=== PATIENT | female | born 1965 | race Caucasian/White ===

== ENCOUNTER → 2023-04-25 15:40 | Outpatient (REF) | payer BC, SELFPAY | LOC: WDC 15:40 | PROVIDERS: ATTENDING PHYSICIAN Obstetrics & Gynecology; FAMILY PHYSICIAN Internal Medicine | DX: Z12.31 Encounter for screening mammogram for malignant neoplasm of breast (principal) | CPT/HCPCS: 77063; 77067 ==

== ENCOUNTER → 2023-07-01 12:52 | Outpatient (REF) | payer BC, SELFPAY | LOC: WDC 12:52 | PROVIDERS: ATTENDING PHYSICIAN Obstetrics & Gynecology; FAMILY PHYSICIAN Internal Medicine | DX: R92.2 Inconclusive mammogram (principal) | CPT/HCPCS: 76641 ==

== ENCOUNTER 2023-08-11 21:35 | Emergency (ER) | payer BC, SELFPAY ==
[2023-08-11 21:35] VITALS: BMI 26.4
[2023-08-11 21:37] VITALS: BP 125/94
[2023-08-11 21:50] VITALS: BP 124/89
[2023-08-11 22:00] VITALS: BP 126/87
[2023-08-11] MEDS: NSS 1000 IV (23:04)
[2023-08-11] MEDS: DILAUDID 0.5 MG IV (23:05)
[2023-08-11] MEDS: OMNIPAQUE 50 ML PO (23:05)
[2023-08-11] MEDS: ZOFRAN 4 MG IV (23:05)
[2023-08-11 23:14] LABS: % Basophils 0.3 % (0-2); % Eosinophils 0.7 % (0-6); % Immature Granulocytes 0.3 % (0-0.5); % Lymphocytes 2.8 % (20.5-51.1); % Monocytes 4.1 % (1.7-9.3); % Neutrophils 91.8 % (42.2-75.2); Absolute Eosinophils 0.1 10^3/uL (0-0.7); Absolute Lymphocytes 0.2 10^3/uL (1.2-3.4); Absolute Monocytes 0.3 10^3/uL (0.1-0.6); Absolute Neutrophils 6.7 10^3/uL (1.4-6.5); Hematocrit 42.7 % (37.0-47.0); Hemoglobin 15.1 g/dL (12.0-16.0); Mean Corp Hgb Conc. 35.4 g/dL (33.0-37.0); Mean Corpuscular Hgb 28.8 pg (27.0-31.0); Mean Corpuscular Volume 81.5 fL (81.0-99.0); Mean Platelet Volume 11.8 fL (7.4-10.4); Nucleated Red Blood Cells % 0 %; Platelet Count 172 10^3/uL (130-400); Red Blood Cell Count 5.24 10^6/uL (4.20-5.40); Red Cell Dist. Width 14.4 % (11.5-14.5); White Blood Cell Count 7.2 10^3/uL (4.8-10.8)
--- NOTE | 2023-08-11 23:14 | ED.GENMED ---
History of Present Illness
General
Chief Complaint: Abdominal Pain
Source: patient, records and spouse
Exam Limitations: none
Time Seen by Provider: 08/11/23 22:34
Nursing documentation reviewed up to this point in time: agreed with
Travel History
Have you had any contact with someone who has COVID-19?: No
Do you have any symptoms of coronavirus? Fever > 100 degrees, chills, cough, shortness of breath, sore throat, loss of taste or smell, muscle aches, or headache?: No
History of Present Illness
History of Present Illness:
Patient is a 58-year-old female who presents to the emergency department complaining of feeling lightheaded and dizzy as well as nauseous with a small amount of vomiting and sudden onset of right lower quadrant pain about 3 PM today. Patient has
been feeling increased gassiness over the past 2 days. Patient denies any diarrhea or constipation. Patient denies fever or chills. Patient also developed cramps in her calves. Patient denies any hematuria, dysuria, urgency or frequency.
Past History
Past History
ED Past Medical History: None
ED Past Surgical History: Orthopedic
Social History
Tobacco: Non-smoker
Alcohol: None
Drug: None
Living: with family
Review of Systems
Review of Systems
All Other Systems: ROS reviewed and negative except as documented in HPI and ROS
Constitutional: Reports no symptoms
EENT: Reports no symptoms
Respiratory: Reports no symptoms
Cardiac: Reports no symptoms
ABD/GI: Reports abdominal pain, vomiting and anorexia; Denies diarrhea or constipated
: Reports no symptoms
Musculoskeletal: Reports no symptoms
Skin: Reports no symptoms
Neurological: Reports no symptoms
Hematologic/Lymphatic: Reports no symptoms
Phy Exam
Physical Exam
Physical Exam:
Physical Exam
General: moderate distress, alert and appropriate, well nourished, dry mucous membranes
HENT: Normocephalic, supple with no lymphadenopathy, no thyromegaly
Eyes: Clear sclera, conjuctiva without injection
Heart: Regular rhythm and rate. No S3, S4. No murmur.
Lungs: No respiratory distress, no stridor, lung sounds clear and equal bilaterally
Abdomen: Soft, moderate right lower quadrant tenderness with guarding but no rebound, mild lower abdominal tenderness without rebound or guarding, no organomegaly, no CVA tenderness, BS good
Neuro: Alert and oriented x 3, CN II - XII intact, no motor focality, no cerebellar dysfunction
Skin: no rash
Psychiatric: well kept. interactive and cooperative
Extremities: No edema, cyanosis, tenderness, Good and equal peripheral pulses.
Course
Orders/Labs/Results
Orders:
Orders
08/11/23 21:42
EKG [Electrocardiogram (*1)] Urgent
Reason for Study: Vertigo / Dizzy
EKG- Treatment ONCE
08/11/23 22:49
Urinalysis Reflex To Culture Urgent
Date Specimen was Collected: 08/12/23
Time Specimen was Collected: 00:29
0.9% Sodium Chloride 1000 ml [Nss] 1,000 ml IV BOLUS
HYDROmorphone [Dilaudid] 0.5 mg IV NOW STA
Iohexol [Omnipaque] See Protocol PO NOW STA
Ondansetron Injectable [Zofran] 4 mg IV NOW STA
08/11/23 23:02
Complete Blood Count/With Diff Urgent
Comprehensive Metabolic Panel Urgent
Lipase Urgent
08/12/23 00:33
Urine Microscopic Reflex Cult Urgent
08/12/23 01:00
CT Abd/pel W Iv And Oral Contr Urgent
Reason For Exam: RLQ tedner
08/12/23 02:22
0.9% Sodium Chloride 500 ml [Nss] 500 ml IV BOLUS
Diphenhydramine [Benadryl] 12.5 mg IV NOW STA
Ketorolac [Toradol] 15 mg IV NOW STA
Pantoprazole [Protonix IV] 80 mg IV NOW STA
Prochlorperazine [Compazine] 10 mg IV NOW STA
Sucralfate [Carafate] 1 gram PO NOW STA
Abnormal Lab Results
08/11/23 08/12/23
23:02 00:33
MPV 11.8 H fL
(7.4-10.4)
Absolute Neuts (auto) 6.7 H 10^3/uL
(1.4-6.5)
Absolute Lymphs (auto) 0.2 L 10^3/uL
(1.2-3.4)
Neutrophils % 91.8 H %
(42.2-75.2)
Lymphocytes % 2.8 L %
(20.5-51.1)
Sodium 134 L mmol/L
(135-145)
BUN 18 H mg/dl
(7-17)
Glucose 108 H mg/dl
(70-99)
AST 42 H U/L
(14-36)
ALT 49 H U/L
(0-35)
Urine Ketones 1+ A
(Negative)
Ur Occult Blood Reflex Trace A
(Negative)
Urine RBC 3-6 A /HPF
(0-2)
Urine Bacteria (Reflex) Few A
(Negative)
Urine Yeast Few A
(Negative)
08/11/23 23:02
08/11/23 23:02
Vital Signs
Initial and Last Documented VS:
Initial Vital Signs
Temp Pulse BP Pulse Ox
98.1 F 120 125/94 97
08/11/23 21:37 08/11/23 21:37 08/11/23 21:37 08/11/23 21:37
Last Documented Vital Signs
Temp Pulse Resp BP Pulse Ox
98.1 F 103 18 101/78 95
08/11/23 21:37 08/12/23 02:45 08/12/23 02:45 08/12/23 02:00 08/12/23 02:45
*Pulse Oximetry
Patient hypoxic: no
*EKG
Interpreted by ED Provider?: NA
*Manager Of Engineering Interpretation
Rate: Manager Of Engineering- N/A
*Critical Care Note
Total Time (30-74mins, 75-104mins- exclusive of procedures): Not Applicable
Update Note
Update Note:
Patient had been feeling better but now is getting recurrence of the pain as well as nausea. Patient's abdominal tenderness is more on the right side now with mild in the right upper quadrant and more intense tenderness in the right lower quadrant
without guarding or rebound.
0340 patient sleeping the last 3 times I want to go into the room to check on her. Unsure the etiology of the patient's pain but seems to be much improved at this time. Patiently discharged to follow-up with her family doctor.
ED Attending Note
-
Portions of this chart may have been created with voice recognition software.� Occasional wrong word or��sound alike� substitutions may have occurred due to the inherent limitations of voice recognition software.
Discharge Plan
Departure
Patient Disposition: Home (Routine Discharge)
Date of Disposition: 08/12/23
Time of Disposition: 03:39
Patient with high blood pressure during this ER visit?: No
Condition: Fair
Covid-19: Not Applicable
Discharge Problem:
Nonspecific abdominal pain
Instructions: [place] Diet, Abdominal Pain
Prescriptions:
New
ondansetron 8 mg tablet,disintegrating
8 mg PO TID PRN (Reason: nausea and vomiting) Qty: 20 0RF
ketorolac 10 mg tablet
10 mg PO QID PRN (Reason: pain) Qty: 20 0RF
No Action
albuterol sulfate [ProAir HFA] 90 mcg/actuation Hfa Aerosol Inhaler
2 puff INHALATION BID
ezetimibe [Zetia] 10 mg Tablet
5 mg PO DAILY
Repatha SureClick 140 mg/mL Pen Injector
140 mg SC Q2W
Referrals:
Connie Mendoza MD [Family Provider] - Follow up in 5-7 days
Interventions
Interventions:
*Risk Screen - Suicide Last Done: 08/11/23 21:38
ED- Fall Risk Assessment Last Done: 08/11/23 22:10
YA-Tsrqxl-Gwzxuumhwh Assessment Last Done: 08/11/23 22:10
ED- Neurological Assessment Last Done: 08/11/23 22:10
ED Swallowing Screen Last Done: 08/11/23 22:10
Discharge Date and Time
Print Language: TURKMEN
[2023-08-11 23:29] LABS: ALT (SGPT) 49 U/L (0-35); AST (SGOT) 42 U/L (14-36); Albumin 4.7 g/dl (3.5-5.0); Alkaline Phosphatase 71 U/L (38-126); Blood Urea Nitrogen 18 mg/dl (7-17); Calcium 9.4 mg/dl (8.4-10.2); Carbon Dioxide 25 mmol/L (22-30); Chloride 100 mmol/L (98-107); Estimated Creatinine Clearance 91 ml/min; Glucose 108 mg/dl (70-99); Lipase 92 U/L (23-300); Potassium 4.2 mmol/L (3.5-5.1); Sodium 134 mmol/L (135-145); Total Bilirubin 0.8 mg/dl (0.2-1.3); Total Protein 7.1 g/dl (6.3-8.2); eGFR > 60.00
[2023-08-12] VITALS: BP 115/78
[2023-08-12 00:41] LABS: Urine Albumin Negative (Neg - Trace); Urine Bilirubin Negative (Negative); Urine Character Clear (Clear); Urine Color Yellow; Urine Glucose Negative (Negative); Urine Ketone 1+ (Negative); Urine Leukocyte Negative (Negative); Urine Nitrite Negative (Negative); Urine Occult Blood Trace (Negative); Urine Urobilinogen Negative (Neg - 1+)
[2023-08-12 00:57] LABS: Urine Bacteria Few (Negative); Urine White Cell 0-2 /HPF (0-5)
[2023-08-12 01:01] LABS: Urine Yeast Few (Negative)
[2023-08-12 01:12] VITALS: BP 116/84
[2023-08-12 02:00] VITALS: BP 101/78
[2023-08-12] MEDS: CARAFATE 1 GRAM PO (02:37)
[2023-08-12] MEDS: BENADRYL 12.5 MG IV (02:38)
[2023-08-12] MEDS: COMPAZINE 10 MG IV (02:40)
[2023-08-12] MEDS: NSS 500 IV (02:42)
[2023-08-12] MEDS: TORADOL 15 MG IV (02:45)
[2023-08-12] MEDS: PROTONIX IV 80 MG IV (02:53)
[2023-08-12 03:00] VITALS: BP 99/70
[2023-08-12 04:00] VITALS: BP 95/78
[2023-08-12 05:00] VITALS: BP 106/57
== END 2023-08-12 06:16 | disposition home or self-care (01) ==
LOC: EMR 21:35
PROVIDERS: EMERGENCY PHYSICIAN Emergency Medicine; FAMILY PHYSICIAN Internal Medicine
DX: R10.31 Right lower quadrant pain (principal); R42 Dizziness and giddiness
CPT/HCPCS: 99284; 96374 ×2; 96375; 96361; 74177; 80053; 81003; 81015; 83690; 85025; 93005; Q9967

== ENCOUNTER → 2023-08-13 07:59 | Outpatient (REF) | payer BC, SELFPAY | LOC: RCS 07:59 | PROVIDERS: ATTENDING PHYSICIAN Nurse Practitioner Adult Health | DX: E78.01 Familial hypercholesterolemia (principal); Z82.49 Family history of ischemic heart disease and other diseases of the circulatory system | CPT/HCPCS: 93306 ==

== ENCOUNTER → 2024-05-15 17:07 | Outpatient (REF) | payer BC, SELFPAY | LOC: RAD 17:07 | PROVIDERS: ATTENDING PHYSICIAN Internal Medicine; FAMILY PHYSICIAN Internal Medicine; REFERRING PHYSICIAN Podiatrist | DX: M79.671 Pain in right foot (principal) | CPT/HCPCS: 73630 ==

== ENCOUNTER → 2024-08-22 12:57 | Outpatient (REF) | payer BC, SELFPAY | LOC: WDC 12:57 | PROVIDERS: ATTENDING PHYSICIAN Obstetrics & Gynecology | DX: Z12.31 Encounter for screening mammogram for malignant neoplasm of breast (principal) | CPT/HCPCS: 77063; 77067 ==

== ENCOUNTER → 2024-10-02 13:01 | Outpatient (REF) | payer BC, SELFPAY | LOC: WDC 13:01 | PROVIDERS: ATTENDING PHYSICIAN Obstetrics & Gynecology | DX: R92.2 Inconclusive mammogram (principal) | CPT/HCPCS: 76641 ==

== ENCOUNTER 2025-02-03 18:55 | Emergency (ER) | payer BC, SELFPAY ==
[2025-02-03 18:58] VITALS: BP 127/89
--- NOTE | 2025-02-03 19:34 | ED.GENMED ---
History of Present Illness
General
Chief Complaint: Cold/Flu/URI Symptoms
Time Seen by Provider: 02/03/25 19:24
History of Present Illness
History of Present Illness:
59-year-old female presents to the emergency department for evaluation of cough, body aches, general malaise, headache, nausea, and fatigue beginning yesterday. Reports fever with Tmax of 105, took Tylenol prior to arrival today. Denies any
diarrhea. No ill contacts at home. Did not receive COVID or flu shot this year
Past History
Past History
ED Past Medical History: None
ED Past Surgical History: Orthopedic
Social History
Tobacco: Non-smoker
Alcohol: None
Drug: None
Living: with family
Review of Systems
Review of Systems
Allergies reviewed?: Yes
All Other Systems: ROS reviewed and negative except as documented in HPI and ROS
Phy Exam
Physical Exam
Physical Exam:
GEN: Well appearing, NAD, WDWN
HEENT: Oral mucosa moist, no scleral icterus, TMs clear with no erythema bilaterally
Cardiac: Regular rate and rhythm, no murmurs
Lung: No respiratory distress, no tachypnea, lungs clear to auscultation bilaterally
MSK: No gross deformity or injuries
Skin: Good color, no pallor or jaundice, no rashes
Neuro: AO x3, moves all extremities freely
Psych: Calm, cooperative
Course
Orders/Labs/Results
Orders:
Orders
02/03/25 19:31
0.9% Sodium Chloride 1000 ml [Nss] 1,000 ml IV BOLUS
Ketorolac [Toradol] 15 mg IV NOW STA
Ondansetron Injectable [Zofran] 4 mg IV NOW STA
02/03/25 19:58
COVID-19 Antigen Urgent
Source: Nasal Swab
Complete Blood Count/No Diff Urgent
Comprehensive Metabolic Panel Urgent
Influenza A+B Rapid Molecular Urgent
CHEMO Source: Nasal Swab
Specimen Description:
Abnormal Lab Results
02/03/25
19:58
MPV 11.8 H fL
(7.4-10.4)
Sodium 134 L mmol/L
(135-145)
02/03/25 19:58
02/03/25 19:58
Vital Signs
Initial and Last Documented VS:
Initial Vital Signs
Temp Pulse Resp BP Pulse Ox
99.6 F 117 20 127/89 97
02/03/25 18:58 02/03/25 18:58 02/03/25 18:58 02/03/25 18:58 02/03/25 18:58
Last Documented Vital Signs
Temp Pulse Resp BP Pulse Ox
99.6 F 112 20 126/96 99
02/03/25 18:58 02/03/25 21:10 02/03/25 21:10 02/03/25 21:10 02/03/25 21:10
MDM/Problems Addressed
MDM/Problems Addressed:
Patient is positive for influenza A. Labs are reassuring, lungs clear no indication for chest x-ray. Discussed potential pros and cons of antiviral therapy and she would opt for therapy at this time thus we will prescribe Tamiflu as she is within
the reasonable treatment window
*Pulse Oximetry
SaO2: 97
Oxygen Mode of Delivery: Room air
Patient hypoxic: no
*Critical Care Note
Total Time (30-74mins, 75-104mins- exclusive of procedures): Not Applicable
ED Attending Note
-
Portions of this chart may have been created with voice recognition software.� Occasional wrong word or��sound alike� substitutions may have occurred due to the inherent limitations of voice recognition software.
Discharge Plan
Departure
Patient Disposition: Home (Routine Discharge)
Date of Disposition: 02/03/25
Time of Disposition: 20:34
Patient with high blood pressure during this ER visit?: No
Discharge Problem:
Influenza
Instructions: Flu in adults - ED (DC)
Prescriptions:
New
oseltamivir 75 mg capsule
75 mg PO BID 5 Days Qty: 10 0RF
ondansetron 4 mg tablet,disintegrating
4 mg PO TIDPRN PRN (Reason: nausea/vomiting) Qty: 10 0RF
No Action
albuterol sulfate [ProAir HFA] 90 mcg/actuation Hfa Aerosol Inhaler
2 puff INHALATION BID
ezetimibe [Zetia] 10 mg Tablet
5 mg PO DAILY
Repatha SureClick 140 mg/mL Pen Injector
140 mg SC Q2W
ondansetron 8 mg tablet,disintegrating
8 mg PO TID PRN (Reason: nausea and vomiting) Qty: 20 0RF
ketorolac 10 mg tablet
10 mg PO QID PRN (Reason: pain) Qty: 20 0RF
Stand Alone Forms: Return to Work
Interventions
Interventions:
*Risk Screen - Suicide Last Done: 02/03/25 19:00
*Neglect/Abuse Screening Last Done: 02/03/25 19:00
*ED COVID-19 Vaccine History Last Done: 02/03/25 19:00
*ED Influenza Vaccine History Last Done: 02/03/25 19:00
*Nursing Disposition Last Done: 02/03/25 21:11
ED- Pulmonary Assessment Last Done: 02/03/25 19:30
Discharge Date and Time
Discharge Date/Time: 02/03/25 21:24
Print Language: TELUGU
[2025-02-03] MEDS: ZOFRAN 4 MG IV (19:55)
[2025-02-03] MEDS: TORADOL 15 MG IV (19:55)
[2025-02-03] MEDS: NSS 1000 IV (19:56)
[2025-02-03 20:09] LABS: Hematocrit 40.3 % (37.0-47.0); Hemoglobin 13.7 g/dL (12.0-16.0); Mean Corp Hgb Conc. 34.0 g/dL (33.0-37.0); Mean Corpuscular Volume 84.0 fL (81.0-99.0); Platelet Count 156 10^3/uL (130-400); Red Cell Dist. Width 12.9 % (11.5-14.5)
[2025-02-03 20:23] LABS: COVID-19 Antigen Negative (Negative)
[2025-02-03 20:29] LABS: ALT (SGPT) 27 U/L (0-35); AST (SGOT) 28 U/L (14-36); Albumin 4.5 g/dl (3.5-5.0); Alkaline Phosphatase 67 U/L (38-126); Blood Urea Nitrogen 9 mg/dl (7-17); Calcium 8.9 mg/dl (8.4-10.2); Carbon Dioxide 25 mmol/L (22-30); Chloride 103 mmol/L (98-107); Glucose 93 mg/dl (70-99); Potassium 4.1 mmol/L (3.5-5.1); Sodium 134 mmol/L (135-145); Total Protein 6.7 g/dl (6.3-8.2); eGFR > 60.00
[2025-02-03 21:10] VITALS: BP 126/96
== END 2025-02-03 21:24 | disposition home or self-care (01) ==
LOC: EMR 18:55
PROVIDERS: Physician Assistant; Registered Nurse; EMERGENCY PHYSICIAN Emergency Medicine; FAMILY PHYSICIAN Internal Medicine
DX: J10.1 Influenza due to other identified influenza virus with other respiratory manifestations (principal); R11.0 Nausea; Z11.52 Encounter for screening for COVID-19
CPT/HCPCS: 96374; 96375; 96361; 99284; 80053; 85027; 87502; 87811